=== PATIENT | female | born 1950 | race American Indian/Alaskan Native ===

== ENCOUNTER 2017-05-15 19:12 | Emergency (ER) | payer MEDICARE ==
[2017-05-15 19:25] VITALS: RESP 18; TEMP 98.4; BMI 27.4
--- NOTE | 2017-05-15 20:02 | ED PDOC ---
Arrival/HPI - General Chief Complaint: Headache Time Seen by Provider: 05/15/17 19:33 Historian: Patient, Family - History of Present Illness Narrative History of Present Illness (Text): pt states having headache, posterior going to the front, gradual onset 2 days ago with progression. associated nausea, wo vomiting, with photophobia. otherwise no sob/chest pain/abdomen pain/numbness/tingling/loss of limb function /dysuria. 05/15/17 19:59 Time/Duration: Other (2 days) Symptom Onset: Gradual Severity Level: 9 Activities at Onset: Rest Context: Sitting Past Medical History - Provider Review Nursing Documentation Reviewed: Yes - Travel History Have you recently traveled outside [place] w/in the past 3 mons?: No - Cardiac Hx Hypertension: Yes - Pulmonary Hx Respiratory Disorders: Yes Other/Comment: breathing problems - Neurological Hx Neurological Disorder: No - HEENT Hx HEENT Disorder: No - Renal Hx Renal Disorder: Yes Hx Kidney Stones: Yes - Endocrine/Metabolic Hx Endocrine Disorders: No - Hematological/Oncological Hx Blood Disorders: No - Integumentary Hx Dermatological Disorder: No - Musculoskeletal/Rheumatological Hx Spinal Stenosis: Yes - Gastrointestinal Hx Gastrointestinal Disorders: No - Genitourinary/Gynecological Hx Genitourinary Disorders: No - Psychiatric Hx Psychophysiologic Disorder: No Hx Substance Use: No - Surgical History Other/Comment: tumor removal breast, left knee sx - Anesthesia Hx Anesthesia: Yes Family/Social History - Physician Review Nursing Documentation Reviewed: Yes Family/Social History: No Known Family HX Smoking Status: Never Smoked Hx Alcohol Use: No Hx Substance Use: No Allergies/Home Meds Allergies/Adverse Reactions: Allergies No Known Allergies Allergy (Verified 05/15/17 19:25) Home Medications: Home Meds Medication Instructions Recorded Confirmed ALPRAZolam [Xanax] 0.25 mg PO DAILY 05/15/17 05/15/17 Gabapentin [Neurontin] 0 mg PO TID 05/15/17 05/15/17 Montelukast [Singulair] 0 mg PO DAILY 05/15/17 05/15/17 No Known Home Med 05/15/17 05/15/17 Omeprazole 0 mg PO DAILY 05/15/17 05/15/17 amLODIPine [Norvasc] 0 mg PO DAILY 05/15/17 05/15/17 Review of Systems - Review of Systems Constitutional: Normal Eyes: Normal ENT: Normal Respiratory: Normal Cardiovascular: Normal Gastrointestinal: Normal Genitourinary Female: Normal Musculoskeletal: Normal Skin: Normal Neurological: Headache Endocrine: Normal Hemo/Lymphatic: Normal Psychiatric: Normal Physical Exam Vital Signs Reviewed: Yes Vital Signs Temp Pulse Resp BP Pulse Ox 05/15/17 19:24 98.4 F 101 H 18 154/92 H 100 Temperature: Afebrile Blood Pressure: Hypertensive Pulse: Tachycardic Respiratory Rate: Normal Appearance: Positive for: Well-Appearing, Non-Toxic Pain Distress: Mild Mental Status: Positive for: Alert and Oriented X 3 - Systems Exam Head: Present: Atraumatic, Normocephalic Pupils: Present: PERRL Extroacular Muscles: Present: EOMI Conjunctiva: Present: Normal Ears: Present: Normal Mouth: Present: Moist Mucous Membranes Pharnyx: Present: Normal Nose (External): Present: Atraumatic Nose (Internal): Present: Normal Inspection Neck: Present: Normal Range of Motion Respiratory/Chest: Present: Clear to Auscultation, Good Air Exchange Cardiovascular: Present: Regular Rate and Rhythm Abdomen: Present: Normal Bowel Sounds Neurological: Present: Other (good finger to nose, ambulating, no b/l pronator drift.) Medical Decision Making ED Course and Treatment: CT head no acute. no ICH. white matter changes. ABCD2 2 low risk. you were treated in the ED today for having headache, posterior going to the front, gradual onset 2 days ago with progression. associated nausea and light sensitivity, without vomiting. otherwise no neck pain/difficulty breathing/ chest pain/abdomen pain/numbness/tingling/loss of limb function/pain with urination. You were otherwise breathing easily, smiling with your son, good strength/sensation, walking easily, clear lungs, no abdomen tenderness, no fever temp 98.4, mildly fast heart rate 101, stable breathing rate 18, excellent oxygen level 100% room air, elevated blood pressure 154/92 which we recommend repeat in 2-3 days primary care office to determine further treatment , you have had a CT head without acute finding, tylenol and zofran done in the ED with mild improvement, had long discussion that spinal tap recommended but you refused and cautioned for missed diagnosis/complications/, but you stated this is like your neuralgia pain and will follow-up with your pain specialist, counselled to monitor symptoms. 1. Recommend tylenol as directed for pain. 2. Recommend followup primary care 2-3 days to review symptoms, referral to neurology. 4. If any worsening pain, fever, chills, nausea, vomiting , difficulty breathing, numbness, loss of limb function, pain with urination or any medical condition then return to the ED. 05/15/17 20:51 05/15/17 21:08 - RAD Interpretation Radiology Orders: 05/15/17 19:57 HEAD W/O CONTRAST [CT] Stat Staff Reporter: Radiologist - Medication Orders Current Medication Orders: Discontinued Medications Acetaminophen (Tylenol 325mg Tab) 975 mg PO STAT STA Stop: 05/15/17 19:59 Last Admin: 05/15/17 20:06 Dose: 975 mg MAR Pain/Vitals Document 05/15/17 20:06 YP (Rec: 05/15/17 20:06 YP [id number]) Pain Reassessment Is This A Pain ReAssessment? No Sleep Is patient sleeping during reassessment? No Presence of Pain Presence of Pain Yes Ondansetron HCl (Zofran Odt) 4 mg PO STAT STA Stop: 05/15/17 19:59 Last Admin: 05/15/17 20:06 Dose: 4 mg Disposition/Present on Arrival - Present on Arrival Any Indicators Present on Arrival: No History of DVT/PE: No History of Uncontrolled Diabetes: No Urinary Catheter: No History of Decub. Ulcer: No History Surgical Site Infection Following: None - Disposition Have Diagnosis and Disposition been Completed?: Yes Diagnosis: Headache Disposition: HOME/ ROUTINE Disposition Time: 21:10 Condition: IMPROVED Additional Instructions: you were treated in the ED today for having headache, posterior going to the front, gradual onset 2 days ago with progression. associated nausea and light sensitivity, without vomiting. otherwise no neck pain/difficulty breathing/ chest pain/abdomen pain/numbness/tingling/loss of limb function/pain with urination. You were otherwise breathing easily, smiling with your son, good strength/sensation, walking easily, clear lungs, no abdomen tenderness, no fever temp 98.4, mildly fast heart rate 101, stable breathing rate 18, excellent oxygen level 100% room air, elevated blood pressure 154/92 which we recommend repeat in 2-3 days primary care office to determine further treatment , you have had a CT head without acute finding, tylenol and zofran done in the ED with mild improvement, had long discussion that spinal tap recommended but you refused and cautioned for missed diagnosis/complications/, but you stated this is like your neuralgia pain and will follow-up with your pain specialist, counselled to monitor symptoms. 1. Recommend tylenol as directed for pain. 2. Recommend followup primary care 2-3 days to review symptoms, referral to neurology. 4. If any worsening pain, fever, chills, nausea, vomiting , difficulty breathing, numbness, loss of limb function, pain with urination or any medical condition then return to the ED. Forms: [facility] (German)
--- NOTE | 2017-05-15 20:39 | CT ---
EXAM: CT Head Without Intravenous Contrast CLINICAL HISTORY: 67 years old, female; Pain; Headache; Tension; Additional info: 67yof with headache TECHNIQUE: Axial computed tomography images of the head/brain without intravenous contrast. All CT scans at this facility use one or more dose reduction techniques, viz.: automated exposure control; ma/kV adjustment per patient size (including targeted exams where dose is matched to indication; i.e. head); or iterative reconstruction technique. COMPARISON: No relevant prior studies available. FINDINGS: Brain: Mild atrophy. No intracranial hemorrhage. No mass. Few scattered subtle foci of decreased attenuation within periventricular/subcortical white matter. No definite edema. Ventricles: No hydrocephalus. Bones/joints: No acute fracture. Soft tissues: Unremarkable. Vasculature: Minimal atherosclerotic disease of intracranial arteries. Sinuses: No acute sinusitis. Mastoid air cells: No mastoid effusion. Orbits: Unremarkable as visualized. IMPRESSION: 1. Nonspecific white matter changes. Acute infarction may be CT occult within first 24 hours. If a focal deficit persists, consider followup CT or MRI for further evaluation. 2. Incidental/non-acute findings are described above.
[2017-05-15 21:19] VITALS: BP 132/67; PULSE 77; O2SAT 99
== END 2017-05-15 21:25 | disposition home or self-care (01) ==
LOC: ED 19:12
DX: R51 Headache (principal); I10 Essential (primary) hypertension